=== PATIENT | male | born 1970 | race Caucasian/White ===

== ENCOUNTER → 2016-06-22 | Outpatient (CLI) | payer OTHER ==
[2016-06-22 09:16] LABS: HEMOGLOBIN A1C 5.83 % (4.2-6.0); MEAN BLOOD GLUCOSE (CALC) 108.139 mg/dL
[2016-06-22 09:27] LABS: ASPARTATE AMINO TRANSFERASE 32 IU/L (21-57); BILIRUBIN,TOTAL 0.5 mg/dL (0.3-1.2); BLOOD UREA NITROGEN 17 mg/dL (7-22); BUN/CREATININE RATIO 14.16 (6-20); CALCIUM 9.9 mg/dL (8.7-10.7); CHLORIDE 104 meq/L (98-112); CREATININE 1.2 mg/dL (0.70-1.50); EST GLOMERULAR FILTRATION > 60 (>60 ml/min/1.73m(2)); GLUCOSE 96 mg/dL (78-110); HDL CHOLESTEROL 37 mg/dL (40-150); POTASSIUM 4.7 meq/L (3.8-5.2); SODIUM 138 meq/L (135-145); TRIGLYCERIDES 337 mg/dL (44-200)
== END ==
LOC: LAB 08:56
PROVIDERS: ATTEND Nurse Practitioner Family
DX: E11.9 Type 2 diabetes mellitus without complications (principal); E78.5 Hyperlipidemia, unspecified; I10 Essential (primary) hypertension; F17.220 Nicotine dependence, chewing tobacco, uncomplicated
CPT/HCPCS: 36415; 80048; 82247; 82465; 82550; 82977; 83036; 83718; 84075; 84450; 84460; 84478